=== PATIENT | female | born 1960 | race Caucasian/White ===

== ENCOUNTER 2017-10-01 08:12 | Inpatient (IN) | payer MEDICARE ==
[~2017-10-01] VITALS: Ht 157.5 cm; Wt 81.4 kg
[~2017-10-01 08:12] MED LIST: (NONE)25 ML IM; ACCOLATE10 MG PO; ACID CONTROL150 MG PO; ACID REDUCER M150 MG PO; ALENDRONATE70 MG PO; ALL DAY ALLG10 MG; ALPRAZOLAM0.5 MG PO; ARTHROTEC 75 OR; B-12500 MCG IM; CARVEDILOL6.25 MG PO; CEFTIN250 MG PO; CYANOCOBALAM1000 MC1 IM; CYANOCOBALAM1000 MCG IM; DICLOFENAC SODI75 MG PO; DICLOFENAC75 MG PO; DILAUDID8 MG OR; DULCOLAX5 MG PO; FLEXERIL PO; FLEXERIL10 MG PO; FUROSEMIDE40 MG PO; KLOR-CON 1010 ME1 PO; LASIX 40 MG TAB40 MG PO; LEVAQUIN500 MG/100 IV; LEVAQUIN750 MG PO; LISINOPRIL2.5 MG PO; LOTRISONE EX; MAG OXIDE400 MG PO; MAGNESIUM500 M2 OR; MEDDOSEPAK OR; MEDDOSEPAK PO; METHADONE10 M1 OR; METHADONE10 M1 PO; METHOCARBAM750 MG OR; METHOCARBAM750 MG PO; MGO400 MG OR; MORPHINE SUL30 M3 PO; MUCINEX DM1 TA1 OR; OMEPRAZOLE20 MG PO; PARAFON FORT PO; PARAFON FORTE500 MG; PERCOCET 10/31 COMBO PO; PERCOCET1 TA5 PO; POTASSIUM99 MG PO; PREDNISONE10 MG PO; PREDNISONE5 MG PO; PRENATAL MV PO; PROAIR HFA IN; RAYOS1 MG PO; ROBITUSSIN10 ML PO; ROCEPHIN 1 GM1 GM IM; ROXICODONE15 MG OR; ROXICODONE30 MG; SERTRALINE50 MG PO; STERAPRED DS10 MG OR; SYNTHROID75 MCG PO; SYNTHROID88 MCG PO; TIZANIDINE HCL4 MG PO; TRAZODONE50 MG PO; XANAX0.5 MG PO; ZANTAC 150 PO; ZANTAC150 M1 PO; ZOFRAN4 M1 OR; ZOFRAN4 M1 PO; ZOVIRAX200 MG PO; ZPAK PO; ZYRTEC-D ALG PO; ZYRTEC10 MG PO; [UNRECOGNIZED DRUG - CODE] OR
[2017-10-01] MEDS ORDERED: MORPHINE SUL30 M3 PO (10:49)
[2017-10-01] MEDS ORDERED: AMLODIPINE5 MG PO (10:53)
[2017-10-01 11:43] LABS: HEMATOCRIT 35.6 % (37.0-47.0); HEMOGLOBIN 11.1 g/dl (12.0-16.0); MEAN CELL VOLUME 84.4 fL CALC (80.0-100.0); MEAN CORPUSCULAR HGB 26.3 pG CALC (26.0-32.0); MEAN CORPUSCULAR HGB CONC 31.2 g/L CALC (32.0-36.0); RED BLOOD COUNT 4.22 mill/uL (4.20-5.60)
[2017-10-01 11:45] LABS: NEUT# 4.38 thou/uL (2.00-7.15)
[2017-10-01 11:51] LABS: ALBUMIN 3.9 g/dL (3.2-5.0); ALKALINE PHOSPHATASE 107 u/l (38-126); ANION GAP 16 (6-22 (CALC)); BILIRUBIN, TOTAL 0.5 mg/dL (0.0-1.4); BUN 18 mg/dL (7-17); BUN/CREATININE RATIO 22 (12-20 (CALC)); CALCIUM 9.1 mg/dL (8.4-10.2); CARBON DIOXIDE 20 mmol/l (22-30); CHLORIDE 114 mmol/l (95-108); CREATININE 0.8 mg/dL (0.5-1.0); GFR > 60 ML/MIN (>=60 (CALC)); GFR FOR AFR.AMER. > 60 ML/MIN (>=60 (CALC)); GLUCOSE 129 mg/dL (65-105); SGOT/AST 38 u/l (14-36); SGPT/ALT 39 u/l (9-52); SODIUM 146 mmol/l (137-146); TOTAL PROTEIN 6.9 g/dL (6.3-8.2)
[2017-10-01 12:30] VITALS: BP 156/92
[2017-10-01 13:10] LABS: URINE BILIRUBIN - DIPSTICK NEGATIVE (NEGATIVE); URINE BLOOD DIPSTICK NEGATIVE (NEGATIVE); URINE CLARITY CLEAR; URINE COLOR YELLOW; URINE GLUCOSE - DIPSTICK NEGATIVE (NEGATIVE); URINE KETONE NEGATIVE (NEGATIVE); URINE LEUK ESTERASE NEGATIVE (NEGATIVE); URINE NITRITE - DIPSTICK NEGATIVE (Negative); URINE PROTEIN - DIPSTICK NEGATIVE (NEG-TRACE); URINE SPECIFIC GRAVITY 1.025; URINE UROBILINOGEN - DIPSTICK 0.2 E.U./dL (0.2)
[2017-10-01 14:35] LABS: TSH, 3RD GENERATION 5.46 uIU/mL (0.47 - 4.68)
[2017-10-01 16:01] VITALS: BP 148/88
[2017-10-01 18:55] VITALS: BP 144/94
[2017-10-02 04:43] VITALS: BP 142/70
[2017-10-02 06:07] LABS: HEMATOCRIT 37.8 % (37.0-47.0); HEMOGLOBIN 12.1 g/dl (12.0-16.0); IMMATURE GRANULOCYTES 0.4 % (0.0-1.0); MEAN CELL VOLUME 81.8 fL CALC (80.0-100.0); MEAN CORPUSCULAR HGB 26.2 pG CALC (26.0-32.0); NEUT# 8.19 thou/uL (2.00-7.15); RED BLOOD COUNT 4.62 mill/uL (4.20-5.60); RED CELL DISTRI WIDTH 15.5 % (11.5-15.5)
[2017-10-02 06:13] LABS: ALBUMIN 4.1 g/dL (3.2-5.0); ALKALINE PHOSPHATASE 96 u/l (38-126); ANION GAP 19 (6-22 (CALC)); BUN 14 mg/dL (7-17); BUN/CREATININE RATIO 19 (12-20 (CALC)); CARBON DIOXIDE 20 mmol/l (22-30); CHLORIDE 109 mmol/l (95-108); CREATININE 0.7 mg/dL (0.5-1.0); GFR > 60 ML/MIN (>=60 (CALC)); GFR FOR AFR.AMER. > 60 ML/MIN (>=60 (CALC)); GLUCOSE 140 mg/dL (65-105); POTASSIUM 3.6 mmol/l (3.5-5.1); SGOT/AST 28 u/l (14-36); SGPT/ALT 35 u/l (9-52); SODIUM 144 mmol/l (137-146); TOTAL PROTEIN 7.3 g/dL (6.3-8.2)
[2017-10-02 09:04] VITALS: BP 121/82
[2017-10-02 15:43] VITALS: BP 113/86
[2017-10-02 19:45] VITALS: BP 1112/77; BP 112/77
[2017-10-03 04:00] VITALS: BP 97/71
[2017-10-03 08:01] VITALS: BP 118/63
[2017-10-03 15:34] VITALS: BP 97/72
== END 2017-10-03 16:18 | DRG 563 ==
LOC: ED 08:12 → ED-I 10:18 → ED 10:34 → MS2 10:35
PROVIDERS: Emergency Medicine; ADMIT Internal Medicine Geriatric Medicine; ATTEND Internal Medicine Geriatric Medicine
PROC: 2W3MX1Z Immobilization of Left Lower Extremity using Splint (ICD-10-PCS; principal; 2017-10-01)
PROC: 0T9B70Z Drainage of Bladder with Drainage Device, Via Natural or Artificial Opening (ICD-10-PCS; 2017-10-01)
DX: S82.832A Other fracture of upper and lower end of left fibula, initial encounter for closed fracture (principal); L98.429 Non-pressure chronic ulcer of back with unspecified severity; I10 Essential (primary) hypertension; F19.20 Other psychoactive substance dependence, uncomplicated; S02.2XXA Fracture of nasal bones, initial encounter for closed fracture; I25.10 Atherosclerotic heart disease of native coronary artery without angina pectoris; K21.9 Gastro-esophageal reflux disease without esophagitis; E53.8 Deficiency of other specified B group vitamins; M19.90 Unspecified osteoarthritis, unspecified site; E03.9 Hypothyroidism, unspecified; S00.211A Abrasion of right eyelid and periocular area, initial encounter; W01.0XXA Fall on same level from slipping, tripping and stumbling without subsequent striking against object, initial encounter; Y93.89 Activity, other specified; Y92.008 Other place in unspecified non-institutional (private) residence as the place of occurrence of the external cause; Z98.84 Bariatric surgery status

== ENCOUNTER → 2019-02-16 | Outpatient (REF) ==
[~2019-02-16] MED LIST changes: +AMLODIPINE5 MG PO; +CETIRIZINE10 MG PO; +KLOR-CON M2020 MEQ PO; +TIZANIDINE4 MG PO; +TOPAMAX50 M1 PO
== END | disposition home or self-care (01) | DRG 645 ==
LOC: LAB 06:57
PROVIDERS: ATTEND Internal Medicine Geriatric Medicine
DX: E03.9 Hypothyroidism, unspecified (principal); I10 Essential (primary) hypertension

== ENCOUNTER 2020-04-05 | Emergency (ER) | payer MEDICARE ==
[2020-04-05] MEDS ORDERED: DIAZEPAM5 MG PO (15:32)
[2020-04-05] MEDS ORDERED: HYDROXYZINE HCL25 M1 PO (15:33)
[2020-04-05] MEDS ORDERED: HYDROCHLOROTH12.5 MG PO (15:33)
[2020-04-05] MEDS ORDERED: LIDOCAINE51 TOP (15:35)
[2020-04-05] MEDS ORDERED: PERCOCET 10/31 COMBO PO (15:36)
[2020-04-05] MEDS ORDERED: PREDNISONE5 MG PO (15:36)
[2020-04-05 15:41] LABS: HEMOGLOBIN 13.3 g/dl (12.0-16.0); IMMATURE GRANULOCYTES 0.3 % (0.0-5.0); MEAN CORPUSCULAR HGB 27.9 pG CALC (26.0-32.0); MEAN CORPUSCULAR HGB CONC 31.7 g/dL CAL (32.0-36.0); NEUT# 6.42 thou/uL (2.00-7.15); RED BLOOD COUNT 4.77 mill/uL (4.20-5.60); RED CELL DISTRI WIDTH 12.2 % (11.5-15.5)
[2020-04-05 15:45] LABS: MEAN CELL VOLUME 88.1 fL CALC (80.0-100.0)
[2020-04-05 15:59] LABS: ALBUMIN 4.2 g/dL (3.2-5.0); ALKALINE PHOSPHATASE 82 u/l (38-126); ANION GAP 13 (6-22 (CALC)); BUN 17 mg/dL (8-23); BUN/CREATININE RATIO 22 (12-20 (CALC)); CARBON DIOXIDE 24 mmol/l (22-30); CHLORIDE 104 mmol/l (95-108); CREATININE 0.8 mg/dL (0.5-1.0); GFR > 60 ML/MIN (>=60 (CALC)); GFR FOR AFR.AMER. > 60 ML/MIN (>=60 (CALC)); SGOT/AST 27 u/l (9-36); SODIUM 138 mmol/l (137-146); TOTAL PROTEIN 7.6 g/dL (6.3-8.2)
[2020-04-05 16:03] LABS: BILIRUBIN, TOTAL 0.4 mg/dL (0.0-1.4)
== END 2020-04-05 22:36 | disposition short-term general hospital (02) ==
PROVIDERS: Family Medicine
DX: M48.02 Spinal stenosis, cervical region (principal); G99.2 Myelopathy in diseases classified elsewhere; E03.9 Hypothyroidism, unspecified; Z98.1 Arthrodesis status

== ENCOUNTER 2021-05-13 14:57 | Emergency (ER) | payer MEDICARE ==
[~2021-05-13] VITALS: Ht 160 cm; Wt 82.0 kg
[~2021-05-13 14:57] MED LIST changes: +DIAZEPAM5 MG PO; +HYDROCHLOROTH12.5 MG PO; +HYDROXYZINE HCL25 M1 PO; +LIDOCAINE51 TOP
[2021-05-13 15:38] LABS: HEMATOCRIT 39.5 % (37.0-47.0); HEMOGLOBIN 11.9 g/dl (12.0-16.0); IMMATURE GRANULOCYTES 0.3 % (0.0-5.0); MEAN CELL VOLUME 91.2 fL CALC (80.0-100.0); MEAN CORPUSCULAR HGB 27.5 pG CALC (26.0-32.0); MEAN CORPUSCULAR HGB CONC 30.1 g/dL CAL (32.0-36.0); NEUT# 4.29 thou/uL (2.00-7.15); RED BLOOD COUNT 4.33 mill/uL (4.20-5.60); RED CELL DISTRI WIDTH 13.7 % (11.5-15.5)
[2021-05-13 16:00] LABS: ALKALINE PHOSPHATASE 80 u/l (38-126); ANION GAP 13 (6-22 (CALC)); BILIRUBIN, TOTAL 0.5 mg/dL (0.0-1.4); BUN 18 mg/dL (8-23); BUN/CREATININE RATIO 16 (12-20 (CALC)); CARBON DIOXIDE 23 mmol/l (22-30); CHLORIDE 106 mmol/l (95-108); CREATININE 1.1 mg/dL (0.5-1.0); GFR 50 ML/MIN (>=60 (CALC)); GFR FOR AFR.AMER. > 60 ML/MIN (>=60 (CALC)); POTASSIUM 3.8 mmol/l (3.5-5.1); SGOT/AST 46 u/l (9-36); SODIUM 138 mmol/l (137-146); TOTAL PROTEIN 7.6 g/dL (6.3-8.2)
[2021-05-13 17:02] LABS: URINE BILIRUBIN - DIPSTICK NEGATIVE (NEGATIVE); URINE BLOOD DIPSTICK NEGATIVE (NEGATIVE); URINE COLOR YELLOW; URINE GLUCOSE - DIPSTICK NEGATIVE (NEGATIVE); URINE KETONE NEGATIVE (NEGATIVE); URINE LEUK ESTERASE NEGATIVE (NEGATIVE); URINE PH 5.5 (4.5-8.0); URINE PROTEIN - DIPSTICK NEGATIVE (NEG-TRACE); URINE SPECIFIC GRAVITY >=1.030; URINE UROBILINOGEN - DIPSTICK 0.2 E.U./dL (0.2)
[2021-05-13 17:03] LABS: URINE NITRITE - DIPSTICK NEGATIVE (Negative)
[2021-05-13 18:19] VITALS: BP 110/80
== END 2021-05-13 18:44 | disposition short-term general hospital (02) ==
LOC: ED 14:57
PROVIDERS: Family Medicine
DX: I21.4 Non-ST elevation (NSTEMI) myocardial infarction (principal); I48.91 Unspecified atrial fibrillation; E03.9 Hypothyroidism, unspecified; I25.2 Old myocardial infarction; Z98.84 Bariatric surgery status; Z20.822 Contact with and (suspected) exposure to COVID-19
CPT/HCPCS: J1650

== ENCOUNTER 2023-07-07 08:25 | Observation (INO) | payer MEDICARE, MEDICAID ==
[~2023-07-07] VITALS: Ht 160 cm; Wt 108.6 kg
[2023-07-07] VITALS (12 sets, daily range): BP systolic 110–159; BP diastolic 59–82
--- NOTE | 2023-07-07 09:25 | NUR ---
Reassessment of patient completed. No distress noted. CALL LIGHT IN REACH, PT JUST RETURNED FROM CT, FRIEND IN ROOM, NO COMPLAINTS, VSS.
[2023-07-07 09:43] LABS: BASO% 0.7 % (0-3); HEMATOCRIT 39.1 % (37.0-47.0); IMMATURE GRANULOCYTES 0.1 % (0.0-5.0); LYMPH% 23.7 % (15-41); MEAN CELL VOLUME 90.9 fL CALC (80.0-100.0); MEAN CORPUSCULAR HGB 27.9 pG CALC (26.0-32.0); MEAN CORPUSCULAR HGB CONC 30.7 g/dL CAL (32.0-36.0); MONO% 9.9 % (2-13); NEUT# 4.24 thou/uL (2.00-7.15); NEUT% 58.6 % (42-76); RED BLOOD COUNT 4.3 mill/uL (4.20-5.60); RED CELL DISTRI WIDTH 13.1 % (11.5-15.5)
[2023-07-07 09:57] LABS: ALBUMIN 4.2 g/dL (3.2-5.0); ALKALINE PHOSPHATASE 94 u/l (38-126); BUN 24 mg/dL (8-23); BUN/CREATININE RATIO 24 (12-20 (CALC)); CARBON DIOXIDE 23 mmol/l (22-30); CHLORIDE 111 mmol/l (95-108); GFR FOR AFR.AMER. > 60 ML/MIN (>=60 (CALC)); GFR OTHER RACES 56 ML/MIN (>=60 (CALC)); SGOT/AST 35 u/l (9-36); SODIUM 140 mmol/l (137-146); TOTAL PROTEIN 7.3 g/dL (6.3-8.2)
[2023-07-07 09:58] LABS: ANION GAP 11 (6-22 (CALC)); BILIRUBIN, TOTAL 0.4 mg/dL (0.02-1.3); POTASSIUM 5.3 mmol/l (3.5-5.1)
[2023-07-07] MEDS ORDERED: TOPROL XL25 M1 PO (10:00)
[2023-07-07] MEDS ORDERED: BUT/APAP/CA3 PO (10:03)
[2023-07-07] MEDS ORDERED: LEVOTHYROXIN100 MCG PO (10:06)
[2023-07-07 10:07] LABS: ACT PARTIAL THROMBO TIME 23.7 SECONDS (20.0-32.5); PROTHROMBIN TIME 9.9 SECONDS (9.0-12.5)
[2023-07-07] MEDS ORDERED: HYDROXYZ HCL25 MG PO (10:07)
[2023-07-07] MEDS ORDERED: GABAPENTIN300 M2 PO (10:08)
[2023-07-07] MEDS ORDERED: LISINOPRIL5 MG PO (10:09)
[2023-07-07] MEDS ORDERED: XTAMPZA ER13.5 MG PO (10:12)
--- NOTE | 2023-07-07 10:24 | NUR ---
Reassessment of patient completed. No distress noted. PT UP TO BSC, NO COMPLAINTS, VSS, FRIEND AT BEDSIDE, CALL LIGHT IN REACH.
[2023-07-07 10:47] LABS: URINE BILIRUBIN - DIPSTICK NEGATIVE (NEGATIVE); URINE COLOR YELLOW; URINE GLUCOSE - DIPSTICK NEGATIVE (NEGATIVE); URINE KETONE Negative (NEGATIVE)
[2023-07-07 10:48] LABS: URINE BLOOD DIPSTICK NEGATIVE (NEGATIVE); URINE LEUK ESTERASE NEGATIVE (NEGATIVE); URINE NITRITE - DIPSTICK NEGATIVE (Negative); URINE PROTEIN - DIPSTICK Trace mg/dL (NEG-TRACE); URINE SPECIFIC GRAVITY >=1.030; URINE UROBILINOGEN - DIPSTICK 0.2 E.U./dL (0.2)
--- NOTE | 2023-07-07 12:56 | NUR ---
ATTEMPT TO CALL REPORT TO MED/SURG
--- NOTE | 2023-07-07 14:00 | NUR ---
Reassessment of patient completed. No distress noted. FRIEND AT BEDSIDE, PT NO COMPLAINTS AT THIS TIME, CALL LIGHT IN REACH, ADVISED WAITING ON [facility] NURSE TO CALL FOR REPORT TO TRANSFER TO HER ROOM.
--- NOTE | 2023-07-07 14:29 | NUR ---
REPORT CALLED TO DIVINA ARTEAGA FOR [facility] ROOM 291, PT KAMERON, DEREK COMPLETED, PT TO [facility] ROOM 291 VIA STRETCHER AT APPROX 1240, ALL BELONGINGS SENT WITH PT AT TIME OF TRANSFER.
[2023-07-07] MEDS ORDERED: MORPHINE SUL30 MG PO (15:56)
[2023-07-08] VITALS (22 sets, daily range): BP systolic 77–124; BP diastolic 37–86
--- NOTE | 2023-07-08 05:43 | NUR ---
PT SLEPT WELL. SPEECH IS CLEAR . HESITANT AT TIMES AND ANNOYED AT TIMES. NIH SCORE 1. ALERT AND ORIENTED. VOIDED IN BATHROOM ON TEL NSR. TOP RAILS UP. BED IS LOCKED. CALL LIGHT IN REACH.
[2023-07-08 05:56] LABS: BASO% 0.7 % (0-3); EOS% 8.6 % (0-8); HEMATOCRIT 35.1 % (37.0-47.0); HEMOGLOBIN 10.9 g/dl (12.0-16.0); IMMATURE GRANULOCYTES 0.2 % (0.0-5.0); LYMPH% 30.3 % (15-41); MEAN CELL VOLUME 90.2 fL CALC (80.0-100.0); MEAN CORPUSCULAR HGB CONC 31.1 g/dL CAL (32.0-36.0); MONO% 10.7 % (2-13); NEUT# 2.88 thou/uL (2.00-7.15); NEUT% 49.5 % (42-76); RED BLOOD COUNT 3.89 mill/uL (4.20-5.60)
[2023-07-08 06:25] LABS: ALBUMIN 3.6 g/dL (3.2-5.0); ALKALINE PHOSPHATASE 91 u/l (38-126); ANION GAP 11 (6-22 (CALC)); BILIRUBIN, TOTAL 0.3 mg/dL (0.02-1.3); BUN 20 mg/dL (8-23); BUN/CREATININE RATIO 21 (12-20 (CALC)); CALCULATED LDLCHOLESTEROL 45 mg/dL (62-129 (CALC)); CARBON DIOXIDE 23 mmol/l (22-30); CHLORIDE 110 mmol/l (95-108); CREATININE 0.9 mg/dL (0.5-1.0); GFR FOR AFR.AMER. > 60 ML/MIN (>=60 (CALC)); GFR OTHER RACES > 60 ML/MIN (>=60 (CALC)); HDL CHOLESTEROL 37 mg/dL (39.0-59.0); MAGNESIUM 1.9 mg/dL (1.6-2.3); POTASSIUM 4.8 mmol/l (3.5-5.1); SGOT/AST 34 u/l (9-36); SODIUM 139 mmol/l (137-146); TOTAL CHOLESTEROL 108 mg/dl (0-199); TOTAL PROTEIN 6.4 g/dL (6.3-8.2); TOTAL TRIGLYCERIDES 135 mg/dl (0-149); VLDL CHOLESTROL 27 mg/dl (1-41 (CALC))
--- NOTE | 2023-07-08 18:45 | NUR ---
PATIENT HEART RATE INCREASED IN THE 150S INFORMED MD OVER TELEPHONE. ORDERED A STAT EKG WHICH SHOWED A-FIB RVR. DR ALEXANDRA ORDER PATIENT TO BE TRANSFERED TO ICU TO START A CARDIZEM GTT. PACKAGE DYER AND ICU STAFF INFORMED. AWAITING TRANSFER AT THIS TIME. PATIENT ASYMPTAMATIC WILL CONTINUE TO MONITOR.
--- NOTE | 2023-07-08 20:15 | NUR ---
PATIENT ARRIVED ON THE UNIT VIA WHEELCHAIR ACCOMPANITED BY MS NURSE. SHE IS ALERT AND ORIENTED X3. LUNGS CLEAR, BOWEL SOUNDS ACTIVE. SKIN INTACT. STRONG PEDAL AND RADIAL PULSES NOTED. PATIENT TRANSFERRED TO UNIT FOR AFIB RVR. UPON ARRIVAL TO UNIT PULSE NOTED 120-140 NOT SUSTAINED. AND THEN IT DECREASES TO THE LOW 100S. PATIENTS HR RISES WITH ACTIVITY AND LOWERS WHEN RESTING. HER BP IS ALSO LOW, CARDIZEM DRIP NOT GIVEN AT THIS TIME.
--- NOTE | 2023-07-08 22:00 | NUR ---
PATIENT NOTED LYING IN BED RESTING WITH NO ACUTE DISTRESS NOTED. WILL CONTINUE TO MONITOR.
[2023-07-09] VITALS (49 sets, daily range): BP systolic 73–144; BP diastolic 37–86
--- NOTE | 2023-07-09 | NUR ---
PATIENT SLEEPING NO ACUTE DISTRESS NOTED. WILL CONTINUE TO MONITOR.
--- NOTE | 2023-07-09 02:00 | NUR ---
NO ACUTE DISTRESS NOTED. WILL CONTINUE TO MONITOR.
--- NOTE | 2023-07-09 04:00 | NUR ---
PATIENT LYING IN BED WITH NO ACUTE DISTRESS NOTED. WILL CONTINUE TO MONITOR.
--- NOTE | 2023-07-09 06:00 | NUR ---
PATIENT LYING IN BED WITH NO ACUTE DISTRESS NOTED.
[2023-07-09 06:08] LABS: BASO% 0.6 % (0-3); EOS% 7.4 % (0-8); HEMATOCRIT 38.3 % (37.0-47.0); HEMOGLOBIN 11.8 g/dl (12.0-16.0); IMMATURE GRANULOCYTES 0.2 % (0.0-5.0); LYMPH% 27.8 % (15-41); MEAN CELL VOLUME 91.2 fL CALC (80.0-100.0); MEAN CORPUSCULAR HGB 28.1 pG CALC (26.0-32.0); MEAN CORPUSCULAR HGB CONC 30.8 g/dL CAL (32.0-36.0); MONO% 9.4 % (2-13); NEUT# 3.47 thou/uL (2.00-7.15); NEUT% 54.6 % (42-76); RED BLOOD COUNT 4.2 mill/uL (4.20-5.60); RED CELL DISTRI WIDTH 12.9 % (11.5-15.5)
[2023-07-09 06:27] LABS: ALBUMIN 3.7 g/dL (3.2-5.0); ALKALINE PHOSPHATASE 105 u/l (38-126); ANION GAP 13 (6-22 (CALC)); BUN 23 mg/dL (8-23); BUN/CREATININE RATIO 22 (12-20 (CALC)); CARBON DIOXIDE 21 mmol/l (22-30); CHLORIDE 110 mmol/l (95-108); GFR FOR AFR.AMER. > 60 ML/MIN (>=60 (CALC)); GFR OTHER RACES 56 ML/MIN (>=60 (CALC)); POTASSIUM 4.7 mmol/l (3.5-5.1); SGOT/AST 31 u/l (9-36); SODIUM 138 mmol/l (137-146); TOTAL PROTEIN 6.6 g/dL (6.3-8.2)
[2023-07-09 06:45] LABS: BILIRUBIN, TOTAL 0.5 mg/dL (0.02-1.3)
--- NOTE | 2023-07-09 10:11 | NUR ---
PT SEEN AWAKE, ALERT, ORIENTED X 3. LUNGS CLEAR, RA. PT WITH WORD FINDING DIFFICULTY AT TIMES, SAYS THAT IT HAS BEEN THIS WAY SINCE HER STROKE WITHOUT IMPROVEMENT.
--- NOTE | 2023-07-09 12:12 | NUR ---
PT AMBULATED WITH BOAT PAINTER, SEEN WITH STEADY GAIT. PT CONTINUES WITH OCCASIONAL WORD FINDING DIFFICULTY.
--- NOTE | 2023-07-09 16:29 | NUR ---
PT VERBALIZES UNDERSTANDING OF DC INSTRUCTIONS, CALLS FOR HER RIDE HOME. PT [facility] IN STABLE CONDITION.
== END 2023-07-09 17:00 | disposition home health service (06) ==
LOC: ED 08:25 → ED-I 11:45 → ED 12:01 → MS2 12:02 → ICU 12:02 → MS2 12:02 → ICU 07-08 20:15
PROVIDERS: Family Medicine; Nurse Practitioner Family; ADMIT Student in an Organized Health Care Education/Training Program; ATTEND Student in an Organized Health Care Education/Training Program
DX: I63.512 Cerebral infarction due to unspecified occlusion or stenosis of left middle cerebral artery (principal); R47.81 Slurred speech; R29.700 NIHSS score 0; I48.0 Paroxysmal atrial fibrillation; I10 Essential (primary) hypertension; E03.9 Hypothyroidism, unspecified; I25.2 Old myocardial infarction; M54.9 Dorsalgia, unspecified; G89.29 Other chronic pain; Z88.6 Allergy status to analgesic agent; E66.9 Obesity, unspecified; Z82.3 Family history of stroke